=== PATIENT | female | born 1985 | race African-American/Black ===

== ENCOUNTER 2019-01-14 14:44 | Inpatient (IN) | payer SELFPAY ==
[~2019-01-14] VITALS: Ht 157.5 cm; Wt 73.9 kg
[2019-01-14] MEDS ORDERED: MORPHINE SULFATE 4 MG/ML CPJ (NOT FOR IM USE) IV STA (16:14)
[2019-01-14] MEDS ORDERED: SODIUM CHLORIDE 0.9% 1,000 ML IV ONE ×2 (16:14→18:30)
[2019-01-14 16:31] LABS: BASOPHILS % 0.7 % (0.0-2.0); EOSINOPHILS % 0.9 % (0.0-5.0); HEMATOCRIT. 41.1 % (36.0-48.0); HEMOGLOBIN. 13.1 g/dL (12.0-16.0); LYMPHOCYTES % 20.6 % (20.0-50.0); MEAN CORPUSCULAR HEMOGLOBIN 22.2 pg (28.0-32.0); MEAN CORPUSCULAR VOLUME 69.3 fL (81.0-99.0); MEAN PLATELET VOLUME 8.6 fl (7.4-10.4); MONOCYTES % 5.1 % (2.0-8.0); NEUTROPHILS % 72.7 % (40.0-76.0); PLATELET 237 x1000/uL (130-400); RED BLOOD CELL COUNT 5.93 mill/uL (4.2-5.4); RED CELL DISTRIBUTION WIDTH 15.7 % (11.6-14.6)
[2019-01-14 16:38] LABS: CHLORIDE 103 mEq/L (98-107); INR 1.1; PROTHROMBIN TIME 11.3 sec (9.6-11.0)
[2019-01-14 16:54] LABS: PLATELET ESTIMATE NORMAL
[2019-01-14 17:39] LABS: CLARITY URINE CLEAR (CLEAR); COLOR URINE YELLOW (YELLOW); KETONES URINE NEGATIVE (NEGATIVE); LEUKOCYTE ESTERASE URINE TRACE (NEGATIVE); NITRITE URINE NEGATIVE (NEGATIVE); OCCULT BLOOD URINE NEGATIVE (NEGATIVE); PH URINE 6.5 (4.5-8.0); PROTEIN URINE NEGATIVE (NEGATIVE); SPECIFIC GRAVITY URINE 1.019 (1.005-1.030); UROBILINOGEN URINE 0.2 E.U./dL (0.2-1.0)
[2019-01-14] MEDS ORDERED: MORPHINE SULFATE 4 MG/ML CPJ (NOT FOR IM USE) IV ONE (18:00)
[2019-01-14] MEDS ORDERED: GUAIFENESIN 200MG/10ML SUGAR FREE UDC PO PRN (18:30)
[2019-01-14] MEDS ORDERED: ONDANSETRON HCL 4MG/2ML INJ IV PRN (18:30)
[2019-01-14] MEDS ORDERED: NITROGLYCERIN 0.4MG TABLET SL SL PRN (18:30)
[2019-01-14] MEDS ORDERED: CLONIDINE 0.1MG TABLET PO PRN (18:30)
[2019-01-14] MEDS ORDERED: MAGNESIUM/ALUMINUM HYDROXIDE/SIMETHICONE 30ML UDC PO PRN (18:30)
[2019-01-14] MEDS ORDERED: ZOLPIDEM TARTRATE 5MG TABLET PO PRN (18:30)
[2019-01-14] MEDS ORDERED: IPRATROPIUM/ALBUTEROL 0.5-3(2.5)MG/3ML NEB INH PRN (18:30)
[2019-01-14] MEDS ORDERED: ACETAMINOPHEN 325MG TABLET PO PRN (18:30)
[2019-01-14] MEDS ORDERED: TRAMADOL 50MG TABLET PO PRN (18:30)
[2019-01-14] MEDS: KETOROLAC 15MG/ML VIAL IV PRN (20:24)
[2019-01-14 20:45] VITALS: BP 122/71
[2019-01-14 21:00] VITALS: BP 122/71
[2019-01-14] MEDS ORDERED: CEFTRIAXONE 1 G PREMIX 50 ML IV SCH (22:00)
[2019-01-14] MEDS: SODIUM CHLORIDE 0.9% 1,000 ML IV SCH (22:22)
[2019-01-14] MEDS: MORPHINE SULFATE 4 MG/ML CPJ (NOT FOR IM USE) IV PRN (22:22)
[2019-01-14] MEDS: CEFTRIAXONE 1 G PREMIX 50 ML IV SCH (23:48)
[2019-01-15] VITALS: BP 106/60
[2019-01-15 04:00] VITALS: BP 120/70
[2019-01-15] MEDS: SODIUM CHLORIDE 0.9% 1,000 ML IV SCH (04:58)
[2019-01-15] MEDS: MORPHINE SULFATE 4 MG/ML CPJ (NOT FOR IM USE) IV PRN (04:58)
[2019-01-15 08:00] VITALS: BP 113/64
[2019-01-15] MEDS: PANTOPRAZOLE SODIUM 40 MG/VIAL IV SCH (08:28)
[2019-01-15] MEDS: KETOROLAC 15MG/ML VIAL IV PRN ×2 (08:29→21:04)
[2019-01-15 11:11] LABS: CHLORIDE 110 mEq/L (98-107)
[2019-01-15 11:14] LABS: AMYLASE 555 IU/L (25-115)
[2019-01-15 11:32] VITALS: BP 108/56
[2019-01-15] MEDS ORDERED: SODIUM CHLORIDE 0.9% 1,000 ML IV SCH (13:30)
[2019-01-15] MEDS ORDERED: POTASSIUM CHLORIDE 20MEQ/PACKET PO SCH (14:45)
[2019-01-15 15:35] VITALS: BP 118/62
[2019-01-15 20:00] VITALS: BP 126/62
[2019-01-15] MEDS: CEFTRIAXONE 1 G PREMIX 50 ML IV SCH (22:19)
[2019-01-16] VITALS: BP 108/56
[2019-01-16 04:00] VITALS: BP 109/56
[2019-01-16 07:11] LABS: CHLORIDE 110 mEq/L (98-107)
[2019-01-16 07:18] LABS: AMYLASE 208 IU/L (25-115)
[2019-01-16 08:00] VITALS: BP 118/65
[2019-01-16] MEDS: PANTOPRAZOLE SODIUM 40 MG/VIAL IV SCH (09:31)
[2019-01-16 10:44] VITALS: BP 118/65
== END 2019-01-16 11:56 | disposition home or self-care (01) | DRG 282 ==
LOC: ER 14:44 → 6EST 18:23 → EDBEDREQ 18:30 → ENRESERV 20:28
PROVIDERS: ADMIT Internal Medicine; ATTEND Internal Medicine
DX: K85.10 Biliary acute pancreatitis without necrosis or infection (principal); R18.8 Other ascites; K80.20 Calculus of gallbladder without cholecystitis without obstruction; N39.0 Urinary tract infection, site not specified; R74.0 Nonspecific elevation of levels of transaminase and lactic acid dehydrogenase [LDH]; Z98.891 History of uterine scar from previous surgery
CPT/HCPCS: 36415; 74181; 76705; 80076; 82150; 83036; 99285; C9113; J0696; J1885; J2270; J2405; J7030